=== PATIENT | male | born 1960 | race African-American/Black ===

== ENCOUNTER 2024-12-01 17:21 | Emergency (ER) | payer OTHER, SELFPAY ==
[2024-12-01 18:25] LABS: Urine Microscopic Reflex YN NO UMIC
--- NOTE | 2024-12-01 18:50 | RAD REPORT ---
EXAMINATION: CT Stone Protocol CLINICAL INDICATION: Male, 64 years old. ABD PAIN TECHNIQUE: CT abdomen and pelvis was performed, without IV contrast, as per department protocol. Axia l, sagittal and coronal reconstructions were obtained. One or more of the following dose reduction techniques were used: Automated exposure control, adjustment of the mA and kV according to the patien t size, and iterative reconstruction. Unless otherwise specified, incidental findings do not require dedicated imaging follow-up. COMPARISON: No prior exam. FINDINGS: The lack of intravenous contrast limits the sensitivity of this exam for evaluation of solid visceral organs, vascular structures, and retroperitoneum. LOWER CHEST: The visualized lung bases are clear. LIVER: Normal in size and contour. No focal lesion. BILIARY SYSTEM: No suspicious abnormalities. SPLEEN: Normal size. No focal lesion. PANCREAS: No mass, ductal dilation, or ariadna-pancreatic fluid. ADRENALS: Normal; no mass. KIDNEYS AND URETERS: Normal size and contour apart from exophytic 3.4 cm right superior renal pole cy stic lesion. No hydronephrosis. URINARY BLADDER: Decompressed limiting evaluation. GASTROINTESTINAL TRACT: No evidence of bowel obstruction, significant free fluid, free air or abscess . APPENDIX: Normal appendix. LYMPH NODES: No lymphadenopathy. MUSCULOSKELETAL: No acute or suspicious osseous abnormality. ADDITIONAL FINDINGS: Sequelae of ventral hernia mesh repair. IMPRESSION: No acute or concerning abnormalities in the abdomen or pelvis, with evaluation limited by lack of IV contrast.
--- NOTE | 2024-12-01 19:19 | EDPHYS ---
Physician Documentation [facility] Name: Tima Fonseca Age: 64 yrs Sex: Male : 1960 Arrival Date: 12/01/2024 Time: 17:21 Bed 10 Private MD: ED Physician Rancho Hood HPI: 12/01 17:50 This 64 yrs old Black Male presents to ER via Ambulatory with complaints of Abdominal kb Pain, Low Back Pain. 17:50 Pt is a 64 year old male who presents for suprapubic pain and urinary frequency. States kb he has felt fullness to bladder and frequency for a couple of days with suprapubic pain that started today. states it feels similar to previous UTIs. Historical: - Allergies: 17:39 mycins; jb4 17:39 Kelfex; jb4 - PMHx: 17:39 CVA; Diabetes - NIDDM; Hypertension; afib (Hypertension); jb4 17:40 COPD; jb4 - PSHx: 17:39 hernia repair (Hypertension); jb4 - Immunization history:: Adult Immunizations not up to date. - Infectious Disease History:: Denies. - Social history:: Smoking status: Patient reports the use of cigarette tobacco products, smokes one pack cigarettes per day. ROS: 17:50 Constitutional: As per HPI kb Exam: 17:50 Constitutional: This is a well developed, well nourished patient who is awake, alert, kb and in no acute distress. Head/Face: Normocephalic, atraumatic. ENT: Moist Mucous membranes Cardiovascular: Regular rate Respiratory: Respirations even and unlabored. No increased work of breathing. Talking in full sentences Abdomen/GI: Soft, non-tender. No distention Back: No spinal tenderness. No costovertebral tenderness. Full range of motion. Skin: Warm, dry with normal turgor. Normal color. MS/ Extremity: Pulses equal, no cyanosis. Neurovascular intact. Full, normal range of motion. Neuro: Awake and alert, GCS 15, oriented to person, place, time, and situation. Vital Signs: 17:40 BP 146 / 86; Pulse 56; Resp 16; Temp 97.8(TE); Pulse Ox 98% on R/A; Weight 117.93 kg jb4 (R); Height 5 ft. 11 in. (R); Pain 4/10; 19:31 BP 121 / 85; Pulse 48; Resp 18; Pulse Ox 100% ; cp4 17:40 Body Mass Index 36.26 (117.93 kg, 180.34 cm) jb4 17:40 Pain Scale: Adult jb4 MDM: 17:25 Medical Screening Exam initiated kb 17:50 Differential diagnosis: Prostatitis, Ureterolithiasis, urinary tract infection, urinary kb retention. Data reviewed: vital signs, nurses notes. 20:14 Test considered but Not performed: Labs: CBC, CMP considered but patient is nontoxic in kb appearance, afebrile, no abdominal tenderness. Counseling: I had a detailed discussion with the patient and/or guardian regarding the historical points, exam findings, and any diagnostic results supporting the discharge/admit diagnosis, lab results, radiology results, the need for outpatient follow up, a family practitioner, to return to the emergency department if symptoms worsen or persist or if there are any questions or concerns that arise at home. 12/01 17:43 Order name: UA Rfx Raymond Cult if indicated; Complete Time: 18:35 kb 12/01 17:43 Order name: CT Stone Protocol; Complete Time: 18:54 kb Administered Medications: No medications were administered Disposition Summary: 12/01/24 19:18 Discharge Ordered Notes: Location: Home kb Condition: Stable kb Diagnosis - Lower abdominal pain, unspecified kb Followup: kb - With: Emergency Department - When: As needed - Reason: Worsening of condition Followup: kb - With: Private Physician - When: 2 - 3 days - Reason: Recheck today's complaints, Continuance of care, Re-evaluation by your physician Discharge Instructions: - Discharge Summary Sheet kb - Abdominal Pain, Adult, [id number] kb Forms: - Medication Reconciliation Form kb - Antibiotic Education kb - Prescription Opioid Use kb - Patient Portal Instructions kb - Leadership Thank You Letter kb Signatures: Dispatcher [employer] EDIbeth Willard FNP-Ely KITCHEN-Fredo Oquendo, RN RN jb4 Corrections: (The following items were deleted from the chart) 17:44 17:44 UA Rfx Raymond Cult if indicated+U.LAB.BRZ ordered. EDMS EDMS 17:44 17:44 Stone Protocol+CT.RAD.BRZ ordered. EDMS EDMS
--- NOTE | 2024-12-01 19:19 | ER ---
Nurse's Notes [facility] Name: Tima Fonseca Age: 64 yrs Sex: Male : 1960 Arrival Date: 12/01/2024 Time: 17:21 Bed 10 Private MD: Diagnosis: Lower abdominal pain, unspecified Presentation: 12/01 17:40 Chief complaint: Patient states: I think I have a bladder infection. I feel like I jb4 constantly have to pee when I don't and I am starting to have a pain in my pelvic area. Coronavirus screen: At this time, the client does not indicate any symptoms associated with coronavirus-19. Ebola Screen: No symptoms or risks identified at this time. Initial Sepsis Screen: Does the patient meet any 2 criteria? No. Patient's initial sepsis screen is negative. Does the patient have a suspected source of infection? No. Patient's initial sepsis screen is negative. Risk Assessment: Do you want to hurt yourself or someone else? Patient reports no desire to harm self or others. Onset of symptoms was November 29, 2024. Transition of care: patient was not received from another setting of care. 17:40 Method Of Arrival: Ambulatory jb4 17:40 Acuity: VINAY 3 jb4 Triage Assessment: 19:32 General: Behavior is calm, cooperative, appropriate for age. cp4 Historical: - Allergies: 17:39 mycins; jb4 17:39 Kelfex; jb4 - PMHx: 17:39 CVA; Diabetes - NIDDM; Hypertension; afib (Hypertension); jb4 17:40 COPD; jb4 - PSHx: 17:39 hernia repair (Hypertension); jb4 - Immunization history:: Adult Immunizations not up to date. - Infectious Disease History:: Denies. - Social history:: Smoking status: Patient reports the use of cigarette tobacco products, smokes one pack cigarettes per day. Screenin:[facility] ED Fall Risk Assessment (Adult) History of falling in the last 3 months, cp4 including since admission No falls in past 3 months (0 pts) Confusion or Disorientation No (0 pts) Intoxicated or Sedated No (0 pts) Impaired Gait No (0 pts) Mobility Assist Device Used No (0 pt) Altered Elimination No (0 pt) Score/Fall Risk Level 0 - 2 = Low Risk Oriented to surroundings, Maintained a safe environment, Assessed \T\ reinforced patient's understanding of fall precautions, Hourly rounding (assess needs \T\ fall precautionary measures) done. Abuse screen: Denies threats or abuse. Denies injuries from another. Nutritional screening: No deficits noted. Tuberculosis screening: No symptoms or risk factors identified. Never had TB. Assessment: 18:02 Reassessment: Patient and/or family updated on plan of care and expected duration. Pain ll1 level reassessed. 19:17 Reassessment: Patient appears in no apparent distress at this time. Patient and/or cp4 family updated on plan of care and expected duration. Pain level reassessed. Patient is alert, oriented x 3, equal unlabored respirations, skin warm/dry/pink. General: Appears in no apparent distress. comfortable. Pain: Denies pain. GI: Bowel sounds present X 4 quads. Abd is soft and non tender X 4 quads. Vital Signs: 17:40 BP 146 / 86; Pulse 56; Resp 16; Temp 97.8(TE); Pulse Ox 98% on R/A; Weight 117.93 kg jb4 (R); Height 5 ft. 11 in. (R); Pain 4/10; 19:31 BP 121 / 85; Pulse 48; Resp 18; Pulse Ox 100% ; cp4 17:40 Body Mass Index 36.26 (117.93 kg, 180.34 cm) jb4 17:40 Pain Scale: Adult jb4 ED Course: 17:24 Patient arrived in ED. al6 17:25 Ibeth Mcnally FNP-C is [facility]. kb 17:25 Rancho Hood MD is Attending Physician. kb 17:40 Arm band placed on right wrist. jb4 17:42 Triage completed. jb4 17:58 Bella Cox, LENORE is Primary Nurse. jp5 17:59 CT Stone Protocol In Process Unspecified. EDMS 18:00 UA Rfx Raymond Cult if indicated Sent. ll1 19:17 Bed in low position. Call light in reach. Side rails up X 1. cp4 19:18 No provider procedures requiring assistance completed. Patient did not have IV access cp4 during this emergency room visit. 19:31 Provided Education on: abdominal pain. cp4 Administered Medications: No medications were administered Medication: 19:17 VIS not applicable for this client. cp4 Outcome: 19:18 Discharge ordered by MD. ying 19:31 Discharged to home ambulatory, cp4 19:31 Condition: stable 19:31 Discharge instructions given to patient, family, Instructed on discharge instructions, follow up and referral plans. Demonstrated understanding of instructions, follow-up care, 19:32 Patient left the ED. cp4 Signatures: Dispatcher [employer] EDNJ Ibeth Mcnally, FIDELINA-C [employer] COMPONENT MACHINIST-Fredo Oquendo RN RN jb4 Jeyson De Leon RN RN teri1 Cindy Vilchis cp4 Bella Cox RN RN jp5 Cyndy Scales al6
== END 2024-12-01 19:32 | disposition home or self-care (01) ==
LOC: ER 17:21
DX: R10.30 Lower abdominal pain, unspecified (principal); R35.0 Frequency of micturition
CPT/HCPCS: 74176; 76377; 81003; 99283